=== PATIENT | male | born 1990 | race Two or more races ===

== ENCOUNTER 2023-01-25 23:59 | Emergency (ER) | payer MEDICAID, SELFPAY ==
[2023-01-26 00:36] VITALS: BP 126/77; PULSE 70; RESP 16; TEMP 36.9; O2SAT 98; BMI 33.0
--- NOTE | 2023-01-26 02:25 | ED_ITS ---
HPI - General Adult General Chief complaint: General Medical Stated complaint: Std test Time Seen by Provider: 01/26/23 02:10 History of Present Illness HPI narrative: Patient came in today to get STD testing as significant other was seen at [facility] with discharge instruction of needing partners tested. Patient denies any discharge. Denies any pain. He is from home. Related Data Previous Rx's Medication Instructions Recorded doxycycline hyclate 100 mg capsule 100 mg PO BID cough 10 days #20 01/26/23 caps Allergies Allergy/AdvReac Type Severity Reaction Status Date / Time No Known Allergies Allergy Verified 01/26/23 00:35 Review of Systems Review of Systems: No penile discharge. No fever no chills no pain on urination. Yes all other systems are reviewed and are negative [facility] Past Medical History Attestation statement: The following information was validated with the patient. Social History Social History Advance Directives: No Advance Directives Information Provided: No Physical Exam ED Vital Signs: Vital Signs - 24 hr 01/26/23 00:36 Temperature 98.5 F Pulse Rate 70 Respiratory Rate 16 Blood Pressure 126/77 Pulse Oximetry 98 BMI result Body Mass Index 33.0 Appearance: Alert. Oriented X3. No acute distress. Eyes: Pupils equal, round and reactive to light. ENT: Pharynx normal. Neck: Normal inspection. Neck supple. No lymph nodes noted. No crepitus CVS: Normal heart rate and rhythm. Pulses normal. Normal S1 and S2 Respiratory: No respiratory distress. Breath sounds normal. No Wheezing. No rales Abdomen: Soft and nontender. No rigidity. No distention. good BS x4 Skin: Skin warm and dry. Normal skin color. Normal skin turgor. Extremities: No lower extremity edema. Neurovascular intact to all extremities. No Lacerations. No Rash Neuro: Oriented X 3. No motor deficit. No sensory deficit. Moving all extermities. No slurred speech Medical Decision Making Medical Decision Making MDM Narrative: Will treat patient for STD. GC chlamydia sent. A dose of Rocephin 500 mg IM was given. Doxycycline will be given. Close follow-up advised. Will advise patient to get partner tested or treated prior to re-engaging Differential Diagnosis Differential Diagnoses: The differential diagnosis associated with the presentation includes STD Lab Data [facility] Lab Attestation statement: I reviewed the patient's lab results. Prescription Management I considered prescription management with: Antibiotic Discharge Plan Discharge Clinical Impression: Exposure to STD Patient Disposition: Home, Self-Care Instructions: Sexually Transmitted Diseases (ED) Prescriptions: New doxycycline hyclate 100 mg capsule 100 mg PO BID 10 Days Qty: 20 0RF Referrals: Physician,Baldomero Chavez [Primary Care Provider] - 01/28/23
[2023-01-26 02:43] LABS: Appearance Urine Clear; Color Urine Yellow; Glucose Urine UA Negative (Negative); Leukocyte Esterase Urine Negative (Negative); Nitrite Urine Negative (Negative); PH 5.5 (5.0-9.0); Urine Blood Negative (Negative); Urine Ketones Negative (Negative); Urine Protein Negative (Neg-Trace)
[2023-01-26 03:14] LABS: Bacteria Urine None Seen (None Seen); Hyaline Casts Urine 0-2 /LPF (0-2); RBC Urine 0-2 /HPF (0-2); Squamous Epithelial Cell Urine 0-2 /HPF (0-2); WBC Urine 0-5 /HPF (0-5)
[2023-01-26 03:15] VITALS: BP 136/78; PULSE 72; RESP 16; O2SAT 99
[2023-01-26] MEDS: cefTRIAXone sodium 500 MG, Lidocaine HCl 1 % MPF 1 ML IM (03:16)
[2023-01-26 10:09] LABS: CT PCR NOT DETECTED (Not Detect.); NG PCR NOT DETECTED (Not Detect.)
== END 2023-01-26 03:25 | disposition home or self-care (01) ==
PROVIDERS: Emergency Provider Emergency Medicine Emergency Medical Services
DX: Z20.2 Contact with and (suspected) exposure to infections with a predominantly sexual mode of transmission (principal)
CPT/HCPCS: 0353U; 81001; 96372; 99283; 99284; J0696